=== PATIENT | female | born 1985 | race Caucasian/White ===

== ENCOUNTER 2021-11-25 05:46 | Day surgery (SDC) | payer MEDICAID ==
[2021-11-19 16:22] LABS: BASOPHILS # (AUTO) 0.1 X10'3 (0-0.2); BASOPHILS % (AUTO) 0.8 % (0-1); EOSINOPHILS # (AUTO) 0.1 X10'3 (0-0.9); EOSINOPHILS % (AUTO) 1.9 % (0-6); LYMPHOCYTES # (AUTO) 3.1 X10'3 (1.1-4.8); LYMPHOCYTES % (AUTO) 43.1 % (21-51); MEAN CORPUSCULAR HEMOGLOBIN 30.7 PG (27.0-31.0); MEAN CORPUSCULAR HGB CONC 34.4 g/dL (33.0-36.5); MEAN CORPUSCULAR VOLUME 89.4 FL (78-98); MONOCYTES # (AUTO) 0.4 X10'3 (0-0.9); NEUTROPHILS # (AUTO) 3.5 X10'3 (1.8-7.7); NEUTROPHILS % (AUTO) 48.2 % (42-75); PRE OP HEMATOCRIT 40.1 % (35.0-45.0); PRE OP HEMOGLOBIN 13.8 g/dL (12.0-16.0); PRE OP PLATELET COUNT 280 X10'3 (140-440); RED BLOOD COUNT 4.49 X10'6 (4.20-5.60); RED CELL DISTRIBUTION WIDTH 13.5 % (11.5-14.5)
[2021-11-19 16:42] LABS: ALBUMIN 3.4 G/DL (3.4-5.0); ALKALINE PHOSPHATASE 58 IU/L (46-116); BLOOD UREA NITROGEN 17 MG/DL (7-18); CALCIUM 8.7 MG/DL (8.5-10.1); CHLORIDE 105 MMOL/L (99-107); CREATININE 0.63 MG/DL (0.40-0.90); HCG SERUM QL NEGATIVE; PRE OP ALT 30 U/L (30-65); PRE OP ANION GAP 11 (8-16); PRE OP AST 19 U/L (10-37); PRE OP BILIRUB, TOTAL 0.2 MG/DL (0.0-1.0); PRE OP GLUCOSE 86 MG/DL (70-104); PRE OP POTASSIUM 3.7 MMOL/L (3.4-5.1); PRE OP SODIUM 140 MMOL/L (135-145); TOTAL CARBON DIOXIDE 24.5 MMOL/L (24-32); TOTAL PROTEIN 6.9 G/DL (6.4-8.2); eGFR > 90 ML/MIN
[2021-11-25] VITALS (13 sets, daily range): BP systolic 120–143; BP diastolic 53–95
[~2021-11-25] VITALS: Ht 175.3 cm; Wt 54.0 kg
[~2021-11-25 05:46] MED LIST: MV-M1CAP15 PO; [UNRECOGNIZED DRUG - REMARK]; cefazolin/dext.iso 2gm/50ml IV ONE; famotidine 20mg tablet PO ONE; ringers solution, lacted 1,000 ML IV SCH
[2021-11-25] MEDS ORDERED: LIDOcaine 1% 30ml preserv. free vial ONE (06:40)
[2021-11-25] MEDS ORDERED: BUPIVAcaine 0.5% inj/PF 30 ML ONE (06:40)
[2021-11-25] MEDS ORDERED: FENTANYL CITRATE/PF 50 MCG/1 ML VIAL ONE (07:23)
[2021-11-25] MEDS ORDERED: midazolam 1 mg/ML 2ml injection ONE (07:23)
[2021-11-25] MEDS ORDERED: propofol inj 20 ML IV ONE (07:31)
[2021-11-25] MEDS ORDERED: glycopyrrolate 0.2mg/ml inj ONE (07:32)
[2021-11-25] MEDS ORDERED: dexamethasone sod phosphate 4mg/ml inj. ONE (07:32)
[2021-11-25] MEDS ORDERED: neostigmine methylsulfate 1 MG/ML 10ml vial ONE (07:32)
[2021-11-25] MEDS ORDERED: rocuronium 10mg/ml inj IV ONE (07:32)
[2021-11-25] MEDS ORDERED: ondansetron/PF 4mg/2ml inj ONE (07:32)
[2021-11-25] MEDS ORDERED: BUPIVAcaine 0.5% inj/PF 30 ml vial IJ ONE (07:43)
[2021-11-25] MEDS ORDERED: hydrALAZINE 20mg/ml inj. IV PRN (07:55)
[2021-11-25] MEDS ORDERED: labetalol 20mg/4ml (5mg/ml) syringe IV PRN (07:55)
[2021-11-25] MEDS ORDERED: morphine 4 MG/ML inj SYRINge IV PRN (07:55)
[2021-11-25] MEDS ORDERED: ondansetron/PF 4mg/2ml inj IV PRN (07:55)
[2021-11-25] MEDS ORDERED: ringers solution, lacted 1,000 ML IV SCH (07:55)
[2021-11-25] MEDS ORDERED: fentaNYL/PF 50MCG/1 ML 2ML syringe IV PRN (07:55)
[2021-11-25] MEDS ORDERED: morphine 2 MG/ML inj. syringe IV PRN (07:55)
[2021-11-25] MEDS ORDERED: HYDROcodone/acetaminophen 5mg/325mg tablet PO PRN (08:40)
--- NOTE | 2021-11-25 08:40 | NUR ---
Received from OR via JESS[facility], accompanied by Anesthesiologist NHUNG and report given by Anesthesiolgist. PATIENT WITH 20G PIV IN LEFT AC RUNING LR AT 100. 10L MASK ON WITH 100% SATUATIONS. 3 LAP SITES TO ABDOMENT THAT ARE ALL CDI. PATIENT APPEARS COMFORTABLE AT THIS TIME. WILL CONTINUE TO ASSESS. Addendum: 11/25/21 at 0850 by Hitesh Rasheed RN, RN Amended: Links added.
[2021-11-25] MEDS: fentaNYL/PF 50MCG/1 ML 2ML syringe IV PRN ×2 (09:07→09:22)
--- NOTE | 2021-11-25 10:30 | NUR ---
ALL DISCHARGE CRITERIA HAS BEEN MET. VSS, PAIN AT A TOLERABLE LEVEL, VOIDING AND ABLE TO SAFELY AMBULATE AND TRANSFER SELF. IV TAKEN OUT WITHOUT ANY COMPLICATIONS. ALL DISCHARGE INSTRUCTIONS COVERED WITH PATIENT AND ALL QUESTIONS ANSWERED. PATIENT TAKEN OUT VIA WHEELCHAIR TO PERSONAL VEHICLE WHERE FAMILY/FRIEND DROVE PATIENT HOME. Addendum: 11/25/21 at 1234 by Hitesh Rasheed RN, RN Amended: Links added.
== END 2021-11-25 10:30 | disposition home or self-care (01) ==
LOC: PAS 05:46
PROVIDERS: ATTEND Surgery
DX: K40.90 Unilateral inguinal hernia, without obstruction or gangrene, not specified as recurrent (principal); G43.909 Migraine, unspecified, not intractable, without status migrainosus; M41.9 Scoliosis, unspecified; Z98.890 Other specified postprocedural states; Z79.899 Other long term (current) drug therapy; Z20.822 Contact with and (suspected) exposure to COVID-19; Z80.9 Family history of malignant neoplasm, unspecified; Z82.61 Family history of arthritis
CPT/HCPCS: 36415; 49650; 80053; 82948; 84703; 85025; 93005; C1781; J1100; J2250; J2405; J2704; J2710; J3010; J3490; J7030; J7120; S0020; S2900; U0003; U0005; Z7506; Z7508; Z7512; A4215; A4618